=== PATIENT | male | born 1995 | race Hispanic/Latino ===

== ENCOUNTER 2022-10-29 19:26 | Emergency (ER) | payer OTHER ==
[~2022-10-29] VITALS: Ht 172.7 cm; Wt 61.2 kg
[2022-10-29] MEDS ORDERED: KETOROLAC 15MG/ML VIAL (15MG/ML) IV ONE (20:30)
[2022-10-29] MEDS ORDERED: TETANUS/DIPHTHERIA TOXOID [ADULT] 0.5 ML VIAL IM ONE (20:30)
[2022-10-29] MEDS ORDERED: MORPHINE 2 MG SYG IVP ONE (20:30)
[2022-10-29] MEDS ORDERED: 0.9%NACL 1000ML 1,000 ML IV ONE (20:30)
[2022-10-29] MEDS ORDERED: ONDANSETRON 4MG INJ IVP ONE (20:30)
[2022-10-29 21:10] LABS: BASOPHILS # (AUTO) 0.09 K/uL (0.00-0.20); BASOPHILS % (AUTO) 0.5 % (0.0-5.0); EOSINOPHILS # (AUTO) 0.02 K/uL (0.00-0.70); EOSINOPHILS % (AUTO) 0.1 % (0.0-8.0); IMMATURE GRANULOCYTE ABSOLUTE 0.14 K/uL (0-1); LYMPHOCYTES # (AUTO) 1.3 K/uL (1.0-4.8); LYMPHOCYTES % (AUTO) 7.7 % (21.0-51.0); MEAN CORPUSCULAR HEMOGLOBIN 31.9 pg (27.0-33.0); MEAN CORPUSCULAR HGB CONC 36.4 g/dL (32.0-36.0); MEAN CORPUSCULAR VOLUME 87.6 fL (79-99); MONOCYTES # (AUTO) 1.2 K/uL (0.1-1.0); MONOCYTES % (AUTO) 7.2 % (3.0-13.0); NEUTROPHILS # (AUTO) 14.1 K/uL (1.8-7.7); NEUTROPHILS % (AUTO) 83.7 % (40.0-77.0); PLATELET COUNT (AUTO) 325 K/uL (130-400); RED BLOOD CELL COUNT(AUTO) 4.11 MIL/uL (4.50-6.20); RED CELL DISTRIBUTION WIDTH 12.9 % (11.0-15.5); WHITE BLOOD COUNT (AUTO) 16.9 K/uL (4.8-10.8)
[2022-10-29 21:32] LABS: CREATININE 1.1 mg/dL (0.5-1.5); POTASSIUM 3.2 mmol/L (3.5-5.1)
[2022-10-29 21:37] LABS: BILIRUBIN,TOTAL 0.7 mg/dL (0.2-1.0); TOTAL PROTEIN, SERUM 7.1 g/dL (6.0-8.3)
[2022-10-29] MEDS ORDERED: IOHEXOL-350 75 ML VIAL IV ONE (21:41)
[2022-10-29] MEDS ORDERED: IBUP-2070 PO (22:40)
[2022-10-29] MEDS ORDERED: CYCL5TAB PO (22:40)
[2022-10-29 23:09] VITALS: BP 118/62; PULSE 64; RESP 16; O2SAT 100
== END 2022-10-29 23:10 | disposition home or self-care (01) ==
LOC: EDH 19:26
DX: S01.01XA Laceration without foreign body of scalp, initial encounter (principal); S16.1XXA Strain of muscle, fascia and tendon at neck level, initial encounter; M54.6 Pain in thoracic spine; M25.511 Pain in right shoulder; M25.512 Pain in left shoulder; X58.XXXA Exposure to other specified factors, initial encounter; Y93.89 Activity, other specified; Y92.89 Other specified places as the place of occurrence of the external cause; Y99.8 Other external cause status
CPT/HCPCS: 99285; 70450; 96374; 96375; 96361; 80053; 85025; 36415; 90714; 72125; 71260; 90471; 12004; J2270; J7030; J2405; J1885; Q9967

== ENCOUNTER 2022-11-06 14:00 | Emergency (ER) | payer OTHER ==
[~2022-11-06] VITALS: Ht 172.7 cm; Wt 61.2 kg
[~2022-11-06 14:00] MED LIST: CYCL5TAB PO; IBUP-2070 PO
[2022-11-06 15:26] VITALS: BP 134/87; PULSE 71; RESP 20
== END 2022-11-06 16:12 | disposition home or self-care (01) ==
LOC: EDH 14:00
DX: Z48.02 Encounter for removal of sutures (principal); Z79.899 Other long term (current) drug therapy
CPT/HCPCS: 99281